=== PATIENT | male | born 1970 | race American Indian/Alaskan Native ===

== ENCOUNTER 2018-06-17 06:41 | Day surgery (SDC) | payer BC ==
[2018-06-16 10:10] VITALS: BMI 27.3
[2018-06-17 07:25] VITALS: RESP 20; TEMP 97.7
[2018-06-17] MEDS ORDERED: Lactated Ringer's 500 ML IV SCH (07:30)
[2018-06-17] MEDS ORDERED: Propofol 10 mg/ml Inj (20 ML) ONE ×2 (09:04→09:35)
[2018-06-17] MEDS ORDERED: Lactated Ringer's 500 ML IV ONE (09:12)
[2018-06-17 09:19] VITALS: PULSE 96; O2SAT 100
[2018-06-17 10:27] VITALS: BP 138/69
== END 2018-06-17 10:30 | disposition home or self-care (01) ==
LOC: C.ENDO 06:41
PROVIDERS: ATTEND Internal Medicine Gastroenterology
DX: Z12.11 Encounter for screening for malignant neoplasm of colon (principal); D12.2 Benign neoplasm of ascending colon; D12.3 Benign neoplasm of transverse colon; D12.4 Benign neoplasm of descending colon; D12.5 Benign neoplasm of sigmoid colon; K64.1 Second degree hemorrhoids; Z80.0 Family history of malignant neoplasm of digestive organs
CPT/HCPCS: 45380; 45385; 88305; J2001; J2704; J7120